=== PATIENT | male | born 1930 | race Hispanic/Latino ===

== ENCOUNTER 2018-04-05 11:56 | Inpatient (IN) | payer MEDICARE, OTHER ==
--- NOTE | 2018-04-05 12:59 | RAD ---
HISTORY: anemia, fatigue COMPARISON: No prior. FINDINGS: LUNGS: No active pulmonary disease. PLEURA: No significant pleural effusion identified, no pneumothorax apparent. CARDIOVASCULAR: Normal. OSSEOUS STRUCTURES: No significant abnormalities. VISUALIZED UPPER ABDOMEN: Normal. OTHER FINDINGS: Metal fragments are seen over the left side of the chest and axilla. IMPRESSION: No active disease.
[2018-04-05 13:15] LABS: BASO # 0.03 K/mm3 (0.0-2.0); BASO % 0.2 % (0.0-3.0); EOS # 0.1 (0.0-0.7); GRAN # 9.99 (1.4-6.5); GRAN % 74.9 % (50.0-68.0); HEMOGLOBIN 7.4 g/dL (14.0-18.0); LYMPH # 1.6 (1.2-3.4); LYMPH % 12.2 % (22.0-35.0); MEAN CELL VOLUME 77.7 fl (80.0-105.0); MEAN CORPUSCULAR HEMOGLOBIN 24.6 pg (25.0-35.0); MEAN CORPUSCULAR HGB CONC 31.6 g/dl (31.0-37.0); MEAN PLATELET VOLUME 9.5 fl (7.0-11.0); MONO # 1.6 (0.1-0.6); MONO % 11.7 % (1.0-6.0); RBC 3.01 10^6/uL (3.5-6.1); WHITE BLOOD COUNT 13.4 10^3/ul (4.5-11.0)
[2018-04-05 13:18] LABS: ALB/GLOB RATIO 1.1 (1.1-1.8); ALBUMIN 3.6 g/dL (3.0-4.8); ALT/SGPT 40 U/L (7-56); AST/SGOT 33 U/L (17-59); BLOOD UREA NITROGEN 40 mg/dL (7-21); CALCIUM 9.1 mg/dL (8.4-10.5); GFR AFRICAN-AMERICAN > 60; GFR NON-AFRICAN AMERICAN 52; LIPASE 61 U/L (23-300)
[2018-04-05 13:19] LABS: INR 1.07 (0.93-1.08); PARTIAL THROMBOPLASTIN TIME 32.2 Seconds (25.1-36.5); PROTHROMBIN TIME 12.3 SECONDS (9.4-12.5)
[2018-04-05 13:29] LABS: TROPONIN I < 0.01 ng/mL
--- NOTE | 2018-04-05 13:30 | ED PDOC ---
Arrival/HPI - General Chief Complaint: Abnormal Labs Time Seen by Provider: 04/05/18 12:07 Historian: Patient, Family - History of Present Illness Narrative History of Present Illness (Text): 04/05/18 13:26 87-year-old male presents today sent in by his primary care physician for anemia. Per patient and his daughter he's been having more than a 20 pound weight loss in the past 2 months. He's complained of decreased appetite. He also noted that he has a growth to his left lateral thigh that has intermittently been squirting blood. Patient states that now has a foul smell. He denies any fevers or chills. He denies abdominal pain. Denies chest pain or shortness of breath. He is complaining of pain in both arms and both legs and states he's been feeling generally fatigued. Time/Duration: > month Symptom Onset: Gradual Symptom Course: Worsening Quality: Aching Severity Level: 3 Past Medical History - Provider Review Nursing Documentation Reviewed: Yes - Travel History Have you recently traveled outside [place] w/in the past 3 mons?: No - Tetanus Immunization Tetanus Immunization: Unknown - Cardiac Hx Cardiac Arrhythmia: Yes Hx Hypertension: Yes - Gastrointestinal Hx Gastroesophageal Reflux: Yes - Psychiatric Hx Anxiety: Yes Hx Substance Use: No - Surgical History Other/Comment: TURB Family/Social History - Physician Review Nursing Documentation Reviewed: Yes Family/Social History: Unknown Family HX Smoking Status: Former Smoker Hx Alcohol Use: Yes Frequency of alcohol use: Socially Hx Substance Use: No Allergies/Home Meds Allergies/Adverse Reactions: Allergies ciprofloxacin [From Cipro] Allergy (Verified 04/05/18 12:07) URTICARIA Home Medications: Home Meds Medication Instructions Recorded Confirmed Digoxin [Digitek] 250 mcg PO DAILY 04/05/18 04/05/18 Ferrous Sulfate [Feosol] 325 mg PO DAILY 04/05/18 04/05/18 Finasteride [Proscar] 5 mg PO DAILY 04/05/18 04/05/18 Lansoprazole [Prevacid 24Hr] 15 mg PO DAILY 04/05/18 04/05/18 Lisinopril [Zestril] 20 mg PO DAILY 04/05/18 04/05/18 amLODIPine [Norvasc] 10 mg PO DAILY 04/05/18 04/05/18 Review of Systems - Review of Systems Constitutional: Fatigue. absent: Fevers Respiratory: absent: SOB, Cough Cardiovascular: absent: Chest Pain, Palpitations Gastrointestinal: Appetite Changes. absent: Abdominal Pain, Constipation, Diarrhea, Nausea, Vomiting Genitourinary Male: absent: Dysuria, Frequency, Hematuria, Urinary Output Changes Musculoskeletal: Arthralgias. absent: Back Pain, Neck Pain Skin: Skin Lesions (left thigh) Neurological: absent: Headache, Dizziness Psychiatric: absent: Anxiety, Depression, Suicidal Ideation Physical Exam Vital Signs Reviewed: Yes Vital Signs Temp Pulse Resp BP Pulse Ox 04/05/18 15:05 98.2 F 75 18 114/60 04/05/18 14:40 98.2 F 74 17 118/61 04/05/18 13:57 75 19 120/59 L 99 04/05/18 12:00 97.9 F 82 18 106/57 L 97 Temperature: Afebrile Blood Pressure: Normal Pulse: Regular Respiratory Rate: Normal Appearance: Positive for: Well-Appearing, Non-Toxic, Comfortable Pain Distress: None Mental Status: Positive for: Alert and Oriented X 3 - Systems Exam Head: Present: Atraumatic Mouth: Present: Moist Mucous Membranes Neck: Present: Normal Range of Motion Respiratory/Chest: Present: Clear to Auscultation, Good Air Exchange. No: Respiratory Distress, Accessory Muscle Use Cardiovascular: Present: Regular Rate and Rhythm, Normal S1, S2. No: Murmurs Abdomen: No: Tenderness, Distention, Peritoneal Signs, Rebound, Guarding Rectal: Present: Normal Rectal Tone. No: Occult Blood (heme negative stools. ) , Rectal Tenderness, Gross Blood, Melena, Hemorrhoids, Fissures Upper Extremity: Present: Normal Inspection, Normal ROM Lower Extremity: Present: Normal ROM, Tenderness, Other (left thigh there is a large 7cm by 6cm erythmatous growth off of the lateral aspect of thigh with foul smelling discharge, no tenderness; oozing blood. sensation and distal pulses intact. ) Neurological: Present: GCS=15, Speech Normal Skin: Present: Warm, Dry, Normal Color. No: Rashes Psychiatric: Present: Alert, Oriented x 3 Medical Decision Making ED Course and Treatment: 04/05/18 13:30 87yr old male sent in by PMD for anemia cbc; hgb; 7.4 wbc; 13.4 cmp; bun; 40/ cr 1.3 trop; wnl ekg; sinus rhythm at67b/m no st elevations, normal axis, normal intervals. cxr; wnl ct abd/pelvis: FINDINGS: LOWER THORAX: Unremarkable. LIVER: Unremarkable. No gross lesion or ductal dilatation. GALLBLADDER AND BILE DUCTS: Unremarkable. PANCREAS: Unremarkable. No gross lesion or ductal dilatation. SPLEEN: Unremarkable. ADRENALS: Unremarkable. No mass. KIDNEYS AND URETERS: There is a well-defined hemorrhagic cyst in the lower pole of the right kidney measuring 16 x 23 by 13 mm in size. This measures 85 Hounsfield units. Vascular calcifications are seen in both kidneys. VASCULATURE: Unremarkable. No aortic aneurysm. BOWEL: There is diverticulosis of the sigmoid colon APPENDIX: Unremarkable. Normal appendix. PERITONEUM: There is a large fat containing right inguinal hernia measuring 3.8 x 4.8 cm in diameter. There is no herniation of bowel loops. LYMPH NODES: Unremarkable. No enlarged lymph nodes. BLADDER: Unremarkable. REPRODUCTIVE: Unremarkable. BONES: No acute fracture. OTHER FINDINGS: None. IMPRESSION: There is a large fat containing right inguinal hernia measuring 3.8 x 4.8 cm in diameter. There is no herniation of bowel loops. No acute intra-abdominal findings consent obtained for blood transfusion; case discussed with dr. last; medical surgical tech; will consult Dr. Rodriguez Case discussed with Dr. eisenberg covering for Dr. Harden accepts admission all aspects of this case were discussed the attending of record. impression; anemia, skin mass admit med/surg - Lab Interpretations Lab Results: 04/05/18 13:04 04/05/18 13:04 Lab Results 04/05/18 14:36: Digoxin 0.9 04/05/18 13:46: Blood Type Confirm A POSITIVE 04/05/18 13:04: Blood Type A POSITIVE, Antibody Screen Negative, Crossmatch See Detail, BBK History Checked No verified bt 04/05/18 13:04: PT 12.3, INR 1.07, APTT 32.2 04/05/18 13:04: WBC 13.4 H, RBC 3.01 L, Hgb 7.4 L, Hct 23.4 L, MCV 77.7 L, MCH 24.6 L, MCHC 31.6, RDW 15.0 H, Plt Count 582 H, MPV 9.5, Gran % 74.9 H, Lymph % (Auto) 12.2 L, [place] % (Auto) 11.7 H, Eos % (Auto) 1.0 L, Baso % (Auto) 0.2, Gran # 9.99 H, Lymph # (Auto) 1.6, [place] # (Auto) 1.6 H, Eos # (Auto) 0.1, Baso # (Auto) 0.03 04/05/18 13:04: Sodium 143, Potassium 4.8, Chloride 104, Carbon Dioxide 26, Anion Gap 18, BUN 40 H, Creatinine 1.3, Est GFR ( Amer) > 60, Est GFR ( Non-Af Amer) 52, Random Glucose 112 H, Calcium 9.1, Total Bilirubin 0.1 L, AST 33, ALT 40, Alkaline Phosphatase 87, Lactate Dehydrogenase 335, Total Creatine Kinase 26 L, Troponin I < 0.01, Total Protein 6.9, Albumin 3.6, Globulin 3.4, Albumin/Globulin Ratio 1.1, Lipase 61 - RAD Interpretation Radiology Orders: 04/05/18 12:24 CHEST PORTABLE [RAD] Stat 04/05/18 12:48 ABD & PELVIS W/O PO OR IV CONT [CT] Stat - Medication Orders Current Medication Orders: Discontinued Medications Piperacillin Sod/Tazobactam Sod (Zosyn 3.375 In Ns 100ml) 100 mls @ 200 mls/hr IVPB STAT STA PRN Reason: Protocol Stop: 04/05/18 15:15 Last Admin: 04/05/18 15:07 Dose: 200 mls/hr eMAR Start Stop Document 04/05/18 15:07 RD (Rec: 04/05/18 15:08 RD [id number]) Intravenous Solution Start Date 04/05/18 Start Time 15:08 End Date 04/05/18 End time 15:38 Total Infusion Time 30 Disposition/Present on Arrival - Present on Arrival Any Indicators Present on Arrival: No History of DVT/PE: No History of Uncontrolled Diabetes: No Urinary Catheter: No History of Decub. Ulcer: No History Surgical Site Infection Following: None - Disposition Have Diagnosis and Disposition been Completed?: Yes Diagnosis: Anemia, Skin mass Disposition: HOSPITALIZED Disposition Time: 14:00 Patient Plan: Admission Condition: FAIR Forms: [employer] ([place]ish)
--- NOTE | 2018-04-05 13:52 | CT ---
PROCEDURE: CT Abdomen and Pelvis without intravenous contrast HISTORY: weight loss, anemia, hx of hernia COMPARISON: None. TECHNIQUE: Without contrast. Contrast dose: Radiation dose: Total exam DLP = 243 mGy-cm. This CT exam was performed using one or more of the following dose reduction techniques: Automated exposure control, adjustment of the mA and/or kV according to patient size, and/or use of iterative reconstruction technique. FINDINGS: LOWER THORAX: Unremarkable. LIVER: Unremarkable. No gross lesion or ductal dilatation. GALLBLADDER AND BILE DUCTS: Unremarkable. PANCREAS: Unremarkable. No gross lesion or ductal dilatation. SPLEEN: Unremarkable. ADRENALS: Unremarkable. No mass. KIDNEYS AND URETERS: There is a well-defined hemorrhagic cyst in the lower pole of the right kidney measuring 16 x 23 by 13 mm in size. This measures 85 Hounsfield units. Vascular calcifications are seen in both kidneys. VASCULATURE: Unremarkable. No aortic aneurysm. BOWEL: There is diverticulosis of the sigmoid colon APPENDIX: Unremarkable. Normal appendix. PERITONEUM: There is a large fat containing right inguinal hernia measuring 3.8 x 4.8 cm in diameter. There is no herniation of bowel loops. LYMPH NODES: Unremarkable. No enlarged lymph nodes. BLADDER: Unremarkable. REPRODUCTIVE: Unremarkable. BONES: No acute fracture. OTHER FINDINGS: None. IMPRESSION: There is a large fat containing right inguinal hernia measuring 3.8 x 4.8 cm in diameter. There is no herniation of bowel loops. No acute intra-abdominal findings
[2018-04-05] MEDS ORDERED: Piperacillin/Tazobact 3.375 gm 100 ML IVPB STA (14:46)
--- NOTE | 2018-04-05 15:43 | CP.PCM.CON ---
History of Present Illness - History of Present Illness History of Present Illness: General Surgery consult note for Dr. Rodriguez Consulted for: left thigh mass, right inguinal hernia Patient is an 87M with PMH of melanoma and basal cell carcinoma, GERD, HTN, and remote history of a cardiac arrhythmia and PSH of TURP who presented to the ER for anemia and a left thigh mass. incidental finding in the ER was a right inguinal hernia. Patient states that he has had a mass on his left thigh for at least 2 years, that it started as a flat, brown skin lesion but then has been steadily growing ever since. It has become foul smelling and "shoots blood" when he is not careful with the dressing changes. Lesion was discovered by his primary physician, Dr. Coffman, who referred him to Dr. Rodriguez's office and attained routine blood work. Patient was found to be anemic and Dr. Coffman referred him to the ER. Patient's daughter states that patient has had a 20 pound irene loss over the past 2 months because he does not want to eat. Patient also complains of chronic constipation and hemorrhoids for which he takes senokot multiple times a day. He reports intermittent dark stools. Patient also reports he has had the right inguinal hernia for 25 years, that it is easily reducible, and that it does not cause any pain or problems when he wheres a hernia support belt. Patient denies any fevers, chills, nausea, vomiting, diarrhea, abdominal pain, chest pain, SOB, or any other symptoms. Patient has had multiple skin lesions removed from abdominal skin and legs which have been shown to be melanoma, patient has also had basal cell cancer removed from his nose in the past. Patient reports he has had a colonoscopy once and it showed a large polyp that was difficult to remove. Pt never followed up for a repeat scope. PMH: arrhythmia, HTN, GERD, anxiety, BPH, melanoma, basal cell carcinoma PSH: TURP, removal of melanoma and basal cell cancer ALL: ciprofloxacin FMHx: multiple siblings with brain and lung cancer, no abdominal cancer history Social: Review of Systems - Review of Systems All systems: reviewed and no additional remarkable complaints except (as per HPI ) Past Patient History - Tetanus Immunizations Tetanus Immunization: Unknown - Past Medical History & Family History Past Medical History?: Yes Pertinent Family History: multiple siblings with lung and brain cancer - Past Social History Smoking Status: Former Smoker - CARDIAC Hx Cardia Arrhythmia: Yes Hx Hypertension: Yes - GASTROINTESTINAL Hx Gastroesophageal Reflux: Yes - PSYCHIATRIC Hx Anxiety: Yes Hx Substance Use: No - SURGICAL HISTORY Other/Comment: TURB Meds Allergies/Adverse Reactions: Allergies Allergy/AdvReac Type Severity Reaction Status Date / Time ciprofloxacin [From Cipro] Allergy URTICARIA Verified 04/05/18 12:07 Physical Exam - Constitutional Appears: Well, Non-toxic, No Acute Distress - Head Exam Head Exam: ATRAUMATIC, NORMOCEPHALIC - Eye Exam Eye Exam: Normal appearance. absent: Conjunctival injection, Scleral icterus - ENT Exam ENT Exam: Mucous Membranes Moist, Normal Oropharynx - Respiratory Exam Respiratory Exam: NORMAL BREATHING PATTERN. absent: Accessory Muscle Use, Respiratory Distress - Cardiovascular Exam Cardiovascular Exam: RRR - GI/Abdominal Exam GI & Abdominal Exam: Soft. absent: Distended, Tenderness Additional comments: small, erythematous, discrete, mobile subcutaneous mass just superior to the left pubic ramus - Rectal Exam Rectal Exam: Hemorrhoids (external, non-thrombosed). absent: Black Stool, Bloody Stool, Fecal Impaction Additional comments: sphincter tone intact, no masses - Exam Exam: Circumcision. absent: Scrotal Swelling, Testicular Tenderness Additional comments: large left inguinal hernia, reducible, non-tender, non-erythematous - Extremities Exam Extremities exam: Positive for: pedal pulses present. Negative for: calf tenderness, pedal edema - Back Exam Back exam: absent: CVA tenderness (L), CVA tenderness (R) - Neurological Exam Neurological exam: Alert, Oriented x3 - Psychiatric Exam Psychiatric exam: Normal Affect, Normal Mood - Skin Skin Exam: Dry, Normal Color, Warm Additional comments: left thigh with mushroom shaped elevated mass approximately 10cc's in diameter, 2cm elevation with base approximately 7cm in diameter, beefy red in appearance, friable, with foul smelling odor, no active bleeding. Results - Vital Signs Recent Vital Signs: Last Vital Signs Temp 98.2 F 04/05/18 15:05 Pulse 75 04/05/18 15:05 Resp 18 04/05/18 15:05 BP 114/60 04/05/18 15:05 Pulse Ox 99 04/05/18 13:57 - Labs Result Diagrams: 04/05/18 13:04 04/05/18 13:04 Assessment & Plan - Assessment and Plan (Free Text) Assessment: 87M with large soft tissue mass of unknown origin in the left thigh, right reducible chronic inguinal hernia, anemia Plan: May consider biopsy vs. excision of the left thigh mass and possibly left pubic lesion No surgical intervention for the inguinal hernia at this time--it is asymptomatic, reducible, no sign of strangulation and chronic Administer blood as needed for anemia or hemodynamic instability recommend GI consult for colonoscopy to evaluate for GI bleed as cause of anemia trend CBC Urine and bowel movement monitoring Discussed with Dr. Michael Hernández, PGY2
[2018-04-05 16:34] LABS: PH,URINE 7.5 (4.7-8.0); URINE APPEARANCE CLEAR (CLEAR); URINE BILIRUBIN NEGATIVE (NEGATIVE); URINE BLOOD NEGATIVE (NEGATIVE); URINE COLOR LIGHT YELLOW (YELLOW); URINE GLUCOSE (UA) NEGATIVE (NEGATIVE); URINE LEUKOCYTE ESTERASE NEGATIVE Leu/uL (NEGATIVE); URINE PROTEIN TRACE mg/dL (<30 mg/dL); URINE UROBILINOGEN 0.2 E.U./dL (<1 E.U./dL)
[2018-04-05 16:38] LABS: URINE RBC NEGATIVE /hpf (0-2); URINE WBC NEGATIVE /hpf (0-6)
[2018-04-05 16:39] VITALS: BMI 17.9
[2018-04-05] MEDS: Digoxin 250 mcg (0.25 mg) Tab PO SCH (18:30)
[2018-04-06] MEDS ORDERED: Sodium Chloride 0.9% 1,000 ML IV SCH (00:01)
--- NOTE | 2018-04-06 01:11 | HP ---
DATE OF EXAM: 04/05/2018 HISTORY OF PRESENT ILLNESS: The patient is 87-year-old, patient of Dr. Coffman. He went to see Dr. Coffman yesterday because of generalized aches and pains, feeling fatigued, tired, no strength. He was seen by Dr. Coffman yesterday who did blood work and called daughter that he should head to Emergency Room because he is anemic. According to his daughter, he has lost 20 pounds in last 2 months. Also, complained of not feeling well, decreased appetite. Denies any black stools. No history of vomiting but does have nausea. The patient also mentions that he has a growth on his left thigh that is there for almost 2 years, but recently it has started smelling bad and it oozes some blood. PAST MEDICAL HISTORY: Significant for: 1. Hypertension. 2. Cardiac arrhythmia. 3. History of prostatic hypertrophy. 4. Gastritis. 5. Anxiety disorder. ALLERGIES: ALLERGIC TO CIPRO. MEDICATION AT HOME: He is on amlodipine 10 mg daily, Prevacid 40 mg daily, finasteride 5 mg daily, ferrous sulfate, digoxin daily, and Zestril 20 mg daily. SOCIAL HISTORY: He used to be a heavy smoker for many, many years, quit 10 years ago. Socially drinks. Does not do drugs. REVIEW OF SYSTEMS: Significant for generalized aches and pain and left thigh discharging wound. PHYSICAL EXAMINATION: GENERAL: He is awake, alert, oriented, and communicative. VITAL SIGNS: He is afebrile, pulse 77, respirations 18, blood pressure 109/57. LUNGS: Bilateral fair air flow. No rhonchi or crackle. HEART: S1 and S2 audible. ABDOMEN: Soft and nontender. No rebound. No guarding. NEUROLOGIC: The patient is awake, alert, oriented, communicative, able to move all extremities. LABORATORY DATA: WBC 13.4, hemoglobin 7.4, hematocrit 23.4, platelets 582. PT 12.3, INR 1.07. Chemistry: Sodium 143, potassium 4.8, chloride 104, CO2 of 26, BUN 40, creatinine 1.3, blood sugar of 112. LFTs are within normal limits. Digoxin level is 0.9. ASSESSMENT: 1. Generalized fatigue, aches and pains, secondary to anemia. 2. Left thigh growth, looks malignant. 3. History of hypertension, currently hypotensive. 4. Benign prostatic hypertrophy. PLAN: The patient will receive 2 blood transfusions. Surgical consult by Dr. Coffman will be requested. We will start him on lisinopril 5 mg for now and might increase if needed. I will start him on IV antibiotics since the growth is foul-smelling and we will follow up his CBC, electrolyte in a.m. Destiny Bellamy MD
[2018-04-06 06:51] LABS: BASO # 0.04 K/mm3 (0.0-2.0); BASO % 0.4 % (0.0-3.0); EOS # 0.2 (0.0-0.7); EOS % 2.1 % (1.5-5.0); GRAN # 8.15 (1.4-6.5); GRAN % 72.5 % (50.0-68.0); LYMPH # 1.6 (1.2-3.4); LYMPH % 14.1 % (22.0-35.0); MEAN CELL VOLUME 79.4 fl (80.0-105.0); MEAN CORPUSCULAR HEMOGLOBIN 25.5 pg (25.0-35.0); MEAN CORPUSCULAR HGB CONC 32.2 g/dl (31.0-37.0); MEAN PLATELET VOLUME 9.7 fl (7.0-11.0); MONO # 1.2 (0.1-0.6); MONO % 10.9 % (1.0-6.0); PLATELET COUNT 494 10^3/uL (120.0-450.0); RBC 3.64 10^6/uL (3.5-6.1); RED CELL DISTRIBUTION WIDTH 15.4 % (11.5-14.5); WHITE BLOOD COUNT 11.3 10^3/ul (4.5-11.0)
[2018-04-06 06:59] LABS: ALBUMIN 3.3 g/dL (3.0-4.8); ALT/SGPT 35 U/L (7-56); AST/SGOT 37 U/L (17-59); BLOOD UREA NITROGEN 24 mg/dL (7-21); CALCIUM 8.8 mg/dL (8.4-10.5); GFR AFRICAN-AMERICAN > 60; GFR NON-AFRICAN AMERICAN > 60
[2018-04-06 07:15] LABS: HEMOGLOBIN 9.3 g/dL (14.0-18.0)
[2018-04-06 07:26] LABS: FREE T4 0.98 ng/dL (0.78-2.19)
[2018-04-06] MEDS ORDERED: Iohexol 350 MG/100 ML VIAL ONE (07:29)
--- NOTE | 2018-04-06 08:10 | CP.PCM.CON ---
History of Present Illness - History of Present Illness History of Present Illness: Hematology-Oncology Consult note for Dr. Harkins Reason for consult: left thigh mass 87yo male PMHx melanoma, basal cell ca, GERD, presents to the ER with anemia and a left thigh mass. Patient saw Dr. Rapp (PMD) on Friday04/03/18 for the left thigh mass and had routine lab work done which showed a low H&H and was told to come in. Patient reports his left thigh mass has been progressively growing over the past 2 years- it started as a flat, brown skin lesion that began to grow and change in appearance. Currently it is a foul smelling with bloody discharge. Patient's daughter at bedside also reports that over the past 6-8 weeks she has noticed her father has had a 20-25pound weight loss and seems more tired and weaker. He has also had a decreased appetite. Patient complains of chronic constipation. On ROS he denied any fever, chills, headache, dizziness , chest pain, palpitations, SOB, cough, abd pain, nausea, vomiting, dysuria, hematura, and swelling in his legs bilaterally. Patient has chronic pain in his legs and anxiety. As per daughter at bedside patient has had multiple skin lesions removed from his nose and legs. He has also had a colonoscopy that showed a large polyp which was difficult to remove. PMHx: HTN, GERD, anxiety, BPH, melanoma, basal cell carcinoma PSurgH: TURP, removal of melanoma and basal cell cancer ALL: ciprofloxacin FMHx: multiple siblings with brain and lung cancer, no abdominal cancer history SocHx: smoked 2-3ppd 65 years and quit 10 years ago. Drinks 1-2beer/wine glass/ day. Used to smoke marijuana Review of Systems - Review of Systems All systems: reviewed and no additional remarkable complaints except Review of Systems: as per HPI Past Patient History - Tetanus Immunizations Tetanus Immunization: Unknown - Past Medical History & Family History Past Medical History?: Yes - Past Social History Smoking Status: Former Smoker - CARDIAC Hx Cardia Arrhythmia: Yes Hx Hypertension: Yes - MUSCULOSKELETAL/RHEUMATOLOGICAL Hx Falls: No - GASTROINTESTINAL Hx Gastroesophageal Reflux: Yes - PSYCHIATRIC Hx Anxiety: Yes Hx Substance Use: No - SURGICAL HISTORY Other/Comment: TURB Meds Allergies/Adverse Reactions: Allergies Allergy/AdvReac Type Severity Reaction Status Date / Time ciprofloxacin [From Cipro] Allergy URTICARIA Verified 04/05/18 12:07 - Medications Medications: Current Medications Acetaminophen (Tylenol 325mg Tab) 650 mg PO Q6H PRN PRN Reason: Fever >100.4 F Last Admin: 04/06/18 00:26 Dose: 650 mg Digoxin (Lanoxin) 0.25 mg PO DAILY [facility] Last Admin: 04/05/18 18:30 Dose: 0.25 mg Finasteride (Proscar) 5 mg PO DAILY [facility] Last Admin: 04/05/18 18:31 Dose: 5 mg Ceftriaxone Sodium (Rocephin 1 Gram Ivpb) 1 gm in 100 mls @ 100 mls/hr IVPB DAILY [facility] PRN Reason: Protocol Sodium Chloride (Sodium Chloride 0.9%) 1,000 mls @ 75 mls/hr IV .[id number] [facility] Last Admin: 04/06/18 00:19 Dose: 75 mls/hr Lisinopril (Zestril) 5 mg PO DAILY [facility] Last Admin: 04/05/18 18:30 Dose: 5 mg Pantoprazole Sodium (Protonix Inj) 40 mg IVP DAILY [facility] Physical Exam - Constitutional Appears: Non-toxic, No Acute Distress - Head Exam Head Exam: ATRAUMATIC, NORMAL INSPECTION, NORMOCEPHALIC - Eye Exam Eye Exam: EOMI, Normal appearance, PERRL. absent: Conjunctival injection, Scleral icterus - ENT Exam ENT Exam: Mucous Membranes Moist - Neck Exam Neck exam: Positive for: Full Rom, Normal Inspection - Respiratory Exam Respiratory Exam: Clear to Auscultation Bilateral. absent: Accessory Muscle Use , Rales, Rhonchi, Wheezes, Respiratory Distress - Cardiovascular Exam Cardiovascular Exam: +S1, +S2 - GI/Abdominal Exam GI & Abdominal Exam: Normal Bowel Sounds, Soft - Rectal Exam Rectal Exam: Deferred - Extremities Exam Extremities exam: Negative for: pedal edema Additional comments: mass noted left lateral thigh mushroom shaped and elevated approx 2cm 10cm x 7 cm in size beefy red, friable, foul smelling odor, purulent and blood noted - Neurological Exam Neurological exam: Alert, CN II-XII Intact, Oriented x3 - Psychiatric Exam Psychiatric exam: Normal Affect, Normal Mood - Skin Skin Exam: Dry Additional comments: left lateral thigh mass Results - Vital Signs Recent Vital Signs: Last Vital Signs Temp 97.6 F 04/05/18 20:13 Pulse 73 04/05/18 20:13 Resp 20 04/05/18 20:13 BP 125/67 04/05/18 20:13 Pulse Ox 99 04/05/18 16:29 - Labs Result Diagrams: 04/06/18 05:30 04/06/18 05:30 Labs: Laboratory Results - last 24 hr 04/05/18 04/06/18 04/06/18 16:20 05:30 05:30 WBC 11.3 H RBC 3.64 Hgb 9.3 L Hct 28.9 L MCV 79.4 L MCH 25.5 MCHC 32.2 RDW 15.4 H Plt Count 494 H MPV 9.7 Gran % 72.5 H Lymph % (Auto) 14.1 L [place] % (Auto) 10.9 H Eos % (Auto) 2.1 Baso % (Auto) 0.4 Gran # 8.15 H Lymph # (Auto) 1.6 [place] # (Auto) 1.2 H Eos # (Auto) 0.2 Baso # (Auto) 0.04 Retic Count 1.11 Sodium 142 Potassium 4.5 Chloride 106 Carbon Dioxide 26 Anion Gap 14 BUN 24 H Creatinine 0.7 L Est GFR ( Amer) > 60 Est GFR (Non-Af Amer) > 60 Random Glucose 100 Calcium 8.8 Iron TIBC % Saturation Total Bilirubin 0.7 AST 37 ALT 35 Alkaline Phosphatase 82 Total Protein 6.5 Albumin 3.3 Globulin 3.2 Albumin/Globulin Ratio 1.0 L Free T4 TSH 3rd Generation Urine Color Light yellow Urine Appearance Clear Urine pH 7.5 Ur Specific [place] 1.010 Urine Protein Trace H Urine Glucose (UA) Negative Urine Ketones Negative Urine Blood Negative Urine Nitrate Negative Urine Bilirubin Negative Urine Urobilinogen 0.2 Ur Leukocyte Esterase Negative Urine RBC Negative Urine WBC Negative Ur Epithelial Cells None 04/06/18 04/06/18 05:30 05:30 WBC RBC Hgb Hct MCV MCH MCHC RDW Plt Count MPV Gran % Lymph % (Auto) [place] % (Auto) Eos % (Auto) Baso % (Auto) Gran # Lymph # (Auto) [place] # (Auto) Eos # (Auto) Baso # (Auto) Retic Count Sodium Potassium Chloride Carbon Dioxide Anion Gap BUN Creatinine Est GFR ( Amer) Est GFR (Non-Af Amer) Random Glucose Calcium Iron 46 TIBC 246 L % Saturation 19 L Total Bilirubin AST ALT Alkaline Phosphatase Total Protein Albumin Globulin Albumin/Globulin Ratio Free T4 0.98 TSH 3rd Generation 1.75 Urine Color Urine Appearance Urine pH Ur Specific [place] Urine Protein Urine Glucose (UA) Urine Ketones Urine Blood Urine Nitrate Urine Bilirubin Urine Urobilinogen Ur Leukocyte Esterase Urine RBC Urine WBC Ur Epithelial Cells Assessment & Plan - Assessment and Plan (Free Text) Assessment: 87yo male PMHx melanoma, basal cell ca, GERD, presents to the ER with anemia and a left thigh mass. CT LE showed 6.2cm exophytic lobulated mass along the lateral thigh skin margin. Surgery on board- appreciate reccs. Patient likely for OR tomorrow 04/07 for superficial excision of skin mass. Continue management as per primary Discussed with Dr. Shahana Olsen PGY2
[2018-04-06] MEDS: Oxycodone/Acetaminophen 5/325 mg Tab PO PRN ×3 (09:40→21:51)
[2018-04-06] MEDS: Digoxin 250 mcg (0.25 mg) Tab PO SCH (09:44)
[2018-04-06] MEDS: cefTRIAXone 1 gm 1 GM/100 ML BAG IVPB SCH (09:45)
--- NOTE | 2018-04-06 09:53 | CARD ---
APPROVED REPORT EKG Measurement Heart [id number] <Conclusion> Sinus rhythm with premature supraventricular complexes Borderline 1st degree AVB LAD
--- NOTE | 2018-04-06 10:02 | CT ---
PROCEDURE: HISTORY: evaluate left thigh mass COMPARISON: 04/05/2018 CT abdomen TECHNIQUE: FINDINGS: There is no evidence of fracture or intramedullary mass of the femur. The thigh musculature appears intact. The subcutaneous fat is clear. There is a 6.2 centimeter exophytic lobulated mass along the lateral skin margin. This is nonspecific. There is no deep component. IMPRESSION: 6.2 centimeter exophytic lobulated mass along the lateral thigh skin margin.
--- NOTE | 2018-04-06 11:39 | PN ---
DATE: 04/06/2018 SUBJECTIVE: The patient has no complaints of any chest pain. No shortness of breath. He does say he has pain in his left shoulder and difficult time in having good range of motion. He also has pain in the left knee. PHYSICAL EXAMINATION VITAL SIGNS: Temperature is 97.6, pulse is 73, blood pressure 125/67, respirations 20. GENERAL: The patient is lying in bed, flat, comfortable. HEENT: No oral lesion. Anicteric sclerae. Moist mucosa. NECK: No JVD, adenopathy, or thyromegaly. CARDIOVASCULAR: S1 and S2, regular. No murmurs, rubs, or gallops. LUNGS: Clear to auscultation bilaterally. No wheeze, rales, or rhonchi. ABDOMEN: Bowel sounds are positive, soft, nontender and nondistended. EXTREMITIES: No cyanosis, clubbing or edema. LABORATORY DATA: White count 11.3, hemoglobin 9.3, creatinine 0.7. CT of the abdomen and pelvis shows a large fat-containing right inguinal hernia measuring 3.8 x 4.8 cm. No acute intraabdominal abnormalities seen. ASSESSMENT: 1. Left leg mass. 2. Hypertension. 3. History of melanoma and basal cell carcinoma. 4. Gastroesophageal reflux disease. 5. Degenerative joint disease/osteoarthritis. 6. Former smoker. 7. Benign prostatic hyperplasia. 8. Hemorrhagic cyst of right kidney, 16 x 23 x 30 mm. 9. Anemia, unknown etiology. PLAN: The patient is scheduled for biopsy today of the right inguinal hernia, 3.8 x 4.8 cm. He has decreased range of motion in the left joint. He also has pain in the left knee. He had a hemoglobin of 7.4, that was at 9.3 this morning. The patient has a TSH that is normal. Mild iron deficiency with saturation of 19%. He did receive transfusion of 2 units. We will get input from Oncology, with Dr. Harkins. The patient had digoxin, this we will continue. He is receiving Proscar for his BPH. The patient is on IV fluids. I will discontinue the patient's IV fluids at this point. The patient is on lisinopril. He had a CT that is done of the left leg. The patient is currently n.p.o. We will also get Dr. Harkins to evaluate the patient for the left shoulder and left knee pain. Trung Harden MD
[2018-04-06 13:21] LABS: FOLATE 8.5 ng/mL
--- NOTE | 2018-04-07 02:46 | CON ---
DATE: ORTHOPEDIC CONSULTATION: HISTORY OF PRESENT ILLNESS: An 87-year-old male, in room 374, bed 1. The patient was asked to be seen for pain in his left shoulder and both knees, appears to be that the left knee is very painful to touch. No significant effusion. He does have what appears to be clinically a high-riding humerus, could very well be a rotator cuff tear, so we are going to send him for an x-ray and since his pain was getting worse and keeping him up at night, I injected his left shoulder for pain with Depo-Medrol and Marcaine. He also complains of bilateral knee pain, so we will x-ray both knees to see if there is any arthrosis, and he is going to go for the surgery tomorrow and to do x-ray of his knees done too, and then I will order some therapy for ambulation, and evaluate him again after he has his general surgical procedure done. FINAL DIAGNOSES: Suspect left shoulder pain from rotator cuff tear and bilateral knee arthrosis, left worse than the right. Juan Alberto Hidalgo DO TITA
[2018-04-07 06:30] LABS: HEMOGLOBIN 9.6 g/dL (14.0-18.0); MEAN CELL VOLUME 80.1 fl (80.0-105.0); MEAN CORPUSCULAR HEMOGLOBIN 25.5 pg (25.0-35.0); MEAN CORPUSCULAR HGB CONC 31.8 g/dl (31.0-37.0); MEAN PLATELET VOLUME 9.5 fl (7.0-11.0); RBC 3.77 10^6/uL (3.5-6.1); RED CELL DISTRIBUTION WIDTH 16.2 % (11.5-14.5); WHITE BLOOD COUNT 12.2 10^3/ul (4.5-11.0)
[2018-04-07 07:26] LABS: ALBUMIN 3.3 g/dL (3.0-4.8); ALT/SGPT 33 U/L (7-56); AST/SGOT 34 U/L (17-59); BLOOD UREA NITROGEN 20 mg/dL (7-21); GFR AFRICAN-AMERICAN > 60; GFR NON-AFRICAN AMERICAN > 60
[2018-04-07] MEDS ORDERED: Bupivacaine 0.5% Inj(30mL) ONE ×2 (09:17→10:33)
[2018-04-07] MEDS ORDERED: Lidocaine 1% Inj (20ml) ONE (09:17)
[2018-04-07] MEDS ORDERED: Propofol 10 mg/ml Inj (20 ML) ONE (09:27)
[2018-04-07] MEDS: cefTRIAXone 1 gm 1 GM/100 ML BAG IVPB SCH (09:40)
[2018-04-07] MEDS ORDERED: ePHEDrine 50 mg/ml Inj ONE (09:40)
--- NOTE | 2018-04-07 09:43 | PN ---
DATE: 04/07/2018 SUBJECTIVE: The patient has no complaints of any chest pain. No shortness of breath. No headaches. He complains of having difficulty with having full range of motion of the left shoulder. PHYSICAL EXAMINATION: VITAL SIGNS: Temperature is 98.7, pulse is 73, blood pressure is 116/72, respirations 19. GENERAL: The patient is lying in bed, flat, comfortable. HEENT: No oral lesion. Anicteric sclerae. Moist mucosa. NECK: No JVD, adenopathy, or thyromegaly. CARDIOVASCULAR: S1 and S2, regular. No murmurs, rubs, or gallops. LUNGS: Clear to auscultation bilaterally. No wheeze, rales, or rhonchi. ABDOMEN: Bowel sounds are positive, soft, nontender and nondistended. EXTREMITIES: No cyanosis, clubbing or edema. LABORATORY DATA: White count of 12.2, hemoglobin 9.6, creatinine is 0.7. ASSESSMENT: 1. Left leg mass. 2. Hypertension. 3. History of melanoma and basal cell carcinoma. 4. Gastroesophageal reflux disease. 5. Degenerative joint disease/osteoarthritis. 6. Former smoker. 7. Benign prostatic hypertrophy. 8. Hemorrhagic cyst of right kidney 16 x 23 x 30 mm. 9. Anemia, chronic. PLAN: The patient is currently comfortable. He had an x-ray. There is some in the left shoulder. He was seen by Dr. Hidalgo. I did speak to him. I appreciate his input. He states that the patient does not have any fractures. The patient is waiting for his biopsy to be done today. The patient is on Proscar, he is going to continue. He is on Protonix daily. The patient is on tramadol for pain. He is on lisinopril. He is also on Percocet for severe pain. He is n.p.o. He is getting physical therapy. May need further rehabilitation. He is waiting to be seen by Physical Therapy. Trung Harden MD
[2018-04-07] MEDS ORDERED: HYDROmorphone 0.5 mg/0.5 ml ISec IVP PRN (11:05)
--- NOTE | 2018-04-07 11:06 | PCM.SURG1 ---
Surgeon's Initial Post Op Note - Surgeon's Notes Surgeon: Dr. Rodriguez Outboard Motor Assembler: Nadege Hernández Type of Anesthesia: General Endo Pre-Operative Diagnosis: left thigh skin mass, left groin sebaceous cyst Operative Findings: [id number] large superficial thigh skin mass, not invading the fascia. Left groin sebaceous cyst Post-Operative Diagnosis: same Operation Performed: left 10x12 thigh mass excision with advancement skin closure of [id number], left groin sebaceous cyst excision Specimen/Specimens Removed: left thigh skin mass [id number], cebaceous cyst of left groin Estimated Blood Loss: EBL {In ML}: 15 Drains Used: No Drains Post-Op Condition: Fair Date of Surgery/Procedure: 04/07/18 Time of Surgery/Procedure: 09:30
--- NOTE | 2018-04-07 12:01 | RAD ---
PROCEDURE: Radiographs of the Left Shoulder HISTORY: lt sh pain COMPARISON: No prior. FINDINGS: BONES: Normal. No fracture. JOINTS: Normal. Glenohumeral and acromioclavicular joints preserved. No osteoarthritis. SOFT TISSUES: Metal fragments are seen in the left axilla. OTHER FINDINGS: There is a small linear collection of air just beneath the acromioclavicular joint. This could be due to recent shoulder injection or aspiration. Clinical correlation IMPRESSION: No acute findings
--- NOTE | 2018-04-07 12:02 | RAD ---
PROCEDURE: Bilateral Knee Radiographs. HISTORY: knee pain COMPARISON: None. FINDINGS: BONES: Right Knee: Normal. No fracture. Left Knee: Normal. No fracture. JOINTS: Right Knee: Normal. No osteoarthritis. Left knee: Normal. No osteoarthritis. SOFT TISSUES: Right Knee: Normal. Left Knee: Normal. JOINT EFFUSION: Right Knee: None. Left Knee: None. OTHER FINDINGS: None. IMPRESSION: Normal radiographs of the knees.
--- NOTE | 2018-04-07 12:49 | PN ---
DATE: 04/07/2018 UPDATE REPORT LOCATION: In [facility], bed 1. SUBJECTIVE: I had ordered x-ray of his left shoulder for suspected bursitis, rotator cuff problem. His x-ray shows also a nondisplaced fracture at distal left clavicle that we will treat conservatively with a sling for 6 weeks and no range of motion of the left shoulder other than pendulum exercises. I will keep him in a sling for comfort and so no one should hold that arm to resist him with ambulation. He will have to walk with a skilled therapist and a cane in the right hand. We will follow him closely, but the fracture should heal uneventfully of the left distal clavicle. Juan Alberto Hidalgo DO
--- NOTE | 2018-04-07 12:52 | PN ---
DATE: 04/07/2018 This is a followup report of an x-ray that I misinterpreted as a fracture of the left clavicle. When I looked at it closer, looked like there is some artifact, that make it look like an oblique fracture of the left distal clavicle. Clinically, he has no significant pain. The injection did help his subacromial bursitis, but I am not going to use a sling and he will be able to ambulate with a walker once the surgery is completed today for his leg mass, but I am reiterates there is no fracture of the left clavicle clinically or by x-ray. Juan Alberto Hidalgo DO
[2018-04-07] MEDS ORDERED: Cefepime IV 2 gm in NS 2 GM/100 ML BAG IVPB SCH (14:00)
[2018-04-07] MEDS ORDERED: Cefepime 1gm in NS 100ml 1 GM/100 ML BAG IVPB SCH (14:00)
[2018-04-07] MEDS ORDERED: POLYETHYLENE GLYCOL 3350 17 GM/Dose PACKET PO ONE (15:07)
--- NOTE | 2018-04-07 17:37 | CP.PCM.PCO ---
Physician Communication Note - Physician Communication Note Physician Communication Note: pt. in OR for biopsy - started abx, will see
[2018-04-07] MEDS: Cefepime IV 2 gm in NS 2 GM/100 ML BAG IVPB SCH (22:19)
[2018-04-08] MEDS: Cefepime IV 2 gm in NS 2 GM/100 ML BAG IVPB SCH (06:13)
[2018-04-08 06:35] LABS: BASO # 0.02 K/mm3 (0.0-2.0); BASO % 0.2 % (0.0-3.0); EOS # 0.2 (0.0-0.7); EOS % 1.8 % (1.5-5.0); GRAN # 8.77 (1.4-6.5); GRAN % 72.9 % (50.0-68.0); HEMOGLOBIN 8.8 g/dL (14.0-18.0); LYMPH # 1.8 (1.2-3.4); LYMPH % 14.6 % (22.0-35.0); MEAN CELL VOLUME 79.9 fl (80.0-105.0); MEAN CORPUSCULAR HEMOGLOBIN 25.3 pg (25.0-35.0); MEAN CORPUSCULAR HGB CONC 31.7 g/dl (31.0-37.0); MEAN PLATELET VOLUME 9.1 fl (7.0-11.0); MONO # 1.3 (0.1-0.6); MONO % 10.5 % (1.0-6.0); RBC 3.48 10^6/uL (3.5-6.1); RED CELL DISTRIBUTION WIDTH 16.7 % (11.5-14.5)
--- NOTE | 2018-04-08 08:28 | CP.PCM.PN ---
Subjective - Date & Time of Evaluation Date of Evaluation: 04/08/18 Time of Evaluation: 08:30 - Subjective Subjective: Heme-Onc Progress note for Dr. Harkins Patient seen and examined sitting up in bed. Patient is POD#1 left thigh skin mass excision and left groin sebaceous cyst excision. Patient denies any pain/ drainage in the area and tolerated procedure well. He complained of b/l knee pain and feeling like his legs were moving at night. Denied other acute complaints of headache, dizziness, fever, chills, chest pain, palpitations, SOB , cough, abd pain, nausea, vomiting, bowel/bladder complaints, swelling in his legs bilaterally. Patient has been encouraged to work with physical therapy and to be OOB to chair. He is tolerating his diet well. Objective - Vital Signs/Intake and Output Vital Signs (last 24 hours): Temp Pulse Resp BP Pulse Ox 98.8 F 78 19 145/90 93 L 04/08/18 06:00 04/08/18 06:00 04/08/18 06:00 04/08/18 06:00 04/08/18 06:00 Intake and Output: 04/08/18 04/08/18 06:59 18:59 Intake Total 540 Balance 540 - Medications Medications: Current Medications Acetaminophen (Tylenol 325mg Tab) 650 mg PO Q6H PRN PRN Reason: Pain, moderate (4-7) Alprazolam (Xanax) 0.5 mg PO Q6 PRN; Protocol PRN Reason: Anxiety Last Admin: 04/07/18 22:20 Dose: 0.5 mg Digoxin (Lanoxin) 0.25 mg PO DAILY [facility] Last Admin: 04/06/18 09:44 Dose: 0.25 mg Finasteride (Proscar) 5 mg PO DAILY [facility] Last Admin: 04/06/18 09:45 Dose: 5 mg Cefepime HCl (Maxipime 2gm) 2 gm in 100 mls @ 100 mls/hr IVPB Q8 [facility] PRN Reason: Protocol Stop: 04/12/18 22:01 Last Admin: 04/08/18 06:13 Dose: 100 mls/hr Lisinopril (Zestril) 5 mg PO DAILY [facility] Last Admin: 04/06/18 09:44 Dose: 5 mg Ondansetron HCl (Zofran Inj) 4 mg IVP ONCE PRN PRN Reason: Nausea/Vomiting Tramadol HCl (Ultram) 50 mg PO Q6 [facility] Last Admin: 04/08/18 06:14 Dose: 50 mg - Labs Labs: 04/08/18 06:00 04/07/18 05:30 PT 12.3 SECONDS (9.4-12.5) 04/05/18 13:04 INR 1.07 (0.93-1.08) 04/05/18 13:04 APTT 32.2 Seconds (25.1-36.5) 04/05/18 13:04 - Constitutional Appears: Non-toxic, No Acute Distress - Head Exam Head Exam: ATRAUMATIC, NORMAL INSPECTION, NORMOCEPHALIC - Eye Exam Eye Exam: EOMI, Normal appearance, PERRL. absent: Conjunctival injection, Scleral icterus Pupil Exam: NORMAL ACCOMODATION - ENT Exam ENT Exam: Mucous Membranes Moist - Neck Exam Neck Exam: Full ROM, Normal Inspection - Respiratory Exam Respiratory Exam: Clear to Ausculation Bilateral, NORMAL BREATHING PATTERN. absent: Accessory Muscle Use, Rales, Rhonchi, Wheezes, Respiratory Distress - Cardiovascular Exam Cardiovascular Exam: +S1, +S2. absent: Murmur - GI/Abdominal Exam GI & Abdominal Exam: Soft, Normal Bowel Sounds. absent: Firm, Guarding, Rigid, Tenderness - Extremities Exam Extremities Exam: Normal Capillary Refill. absent: Pedal Edema Additional comments: left lateral thigh incision noted. tanna clean/dry/intact. dressing in place - Neurological Exam Neurological Exam: Alert, Awake, Oriented x3 - Psychiatric Exam Psychiatric exam: Normal Affect, Normal Mood - Skin Skin Exam: Dry, Intact, Normal Color, Warm Assessment and Plan - Assessment and Plan (Free Text) Assessment: 87yo male PMHx melanoma, basal cell ca, GERD, presents to the ER with anemia and a left thigh mass. POD#1 Left 10x12 thigh mass excision with advancement skin closure of [id number], Left groin sebaceous cyst excision. Mass sent for biopsy- will f/u to determine management. Tissue culture of left thigh wound grew Pseudomonas Aeruginosa- patient started on Abx as per ID- Cefepime 2gm ivpb q8. CT LE showed 6.2cm exophytic lobulated mass along the lateral thigh skin margin. Continue management as per primary Discussed with Dr. Shahana Olsen PGY2
[2018-04-08] MEDS: Digoxin 250 mcg (0.25 mg) Tab PO SCH (09:51)
--- NOTE | 2018-04-08 12:19 | CP.PCM.PN ---
Subjective - Date & Time of Evaluation Date of Evaluation: 04/08/18 Time of Evaluation: 12:13 - Subjective Subjective: Surgery: Dr. Rodriguez Pt seen and examined. No acute overnight events. States he feels ok this morning but still has pain in his knee secondary to his arthritis. Tolerating diet & denies N/V, F/C. Objective - Vital Signs/Intake and Output Vital Signs (last 24 hours): Temp Pulse Resp BP Pulse Ox 98.8 F 89 19 145/90 93 L 04/08/18 06:00 04/08/18 10:00 04/08/18 06:00 04/08/18 06:00 04/08/18 06:00 Intake and Output: 04/08/18 04/08/18 06:59 18:59 Intake Total 540 Balance 540 - Medications Medications: Current Medications Acetaminophen (Tylenol 325mg Tab) 650 mg PO Q6H PRN PRN Reason: Pain, moderate (4-7) Alprazolam (Xanax) 0.5 mg PO Q6 PRN; Protocol PRN Reason: Anxiety Last Admin: 04/07/18 22:20 Dose: 0.5 mg Digoxin (Lanoxin) 0.25 mg PO DAILY [facility] Last Admin: 04/08/18 09:51 Dose: 0.25 mg Finasteride (Proscar) 5 mg PO DAILY [facility] Last Admin: 04/08/18 09:52 Dose: 5 mg Cefepime HCl (Maxipime 2gm) 2 gm in 100 mls @ 100 mls/hr IVPB Q8 [facility] PRN Reason: Protocol Stop: 04/12/18 22:01 Last Admin: 04/08/18 06:13 Dose: 100 mls/hr Lisinopril (Zestril) 5 mg PO DAILY [facility] Last Admin: 04/08/18 09:52 Dose: 5 mg Ondansetron HCl (Zofran Inj) 4 mg IVP ONCE PRN PRN Reason: Nausea/Vomiting Tramadol HCl (Ultram) 50 mg PO Q6 [facility] Last Admin: 04/08/18 11:10 Dose: 50 mg - Labs Labs: 04/08/18 06:00 04/07/18 05:30 PT 12.3 SECONDS (9.4-12.5) 04/05/18 13:04 INR 1.07 (0.93-1.08) 04/05/18 13:04 APTT 32.2 Seconds (25.1-36.5) 04/05/18 13:04 - Constitutional Appears: Well, No Acute Distress - Head Exam Head Exam: ATRAUMATIC, NORMOCEPHALIC - Eye Exam Eye Exam: Normal appearance - ENT Exam ENT Exam: Mucous Membranes Moist - Respiratory Exam Respiratory Exam: NORMAL BREATHING PATTERN - Cardiovascular Exam Cardiovascular Exam: RRR - GI/Abdominal Exam GI & Abdominal Exam: Soft. absent: Tenderness - Extremities Exam Additional comments: Left lateral thigh with dressing, clean/dry/intact - Neurological Exam Neurological Exam: Alert, Awake, Oriented x3 - Skin Skin Exam: Dry, Warm Assessment and Plan - Assessment and Plan (Free Text) Assessment: 87M s/p excision of Left lateral thigh mass and suprapubic sebaceous cyst Plan: - ok to DC from surgical standpoint - f/u with Dr. Rodriguez in 1 week - Ok to remove dressings tomorrow & shower - d/w Dr. Michael Toney, PGY-3
--- NOTE | 2018-04-08 15:39 | PN ---
DATE: 04/08/2018 HISTORY OF PRESENT ILLNESS: The patient is not complaining of any chest pain or shortness of breath. No headaches or dizziness. The patient had a biopsy done yesterday, results are pending. He has not been able to ambulate. The plan is to get him to subacute rehab or transitional care unit today. I did speak to the patient's daughter at the bedside to give an update on the patient's diagnosis and plan of care. He is being followed by Dr. Harkins and also by Dr. Hidalgo from Oncology and Orthopedics respectively. He is eating okay. PHYSICAL EXAMINATION: VITAL SIGNS: Temperature is 98, pulse of 80, blood pressure 120/77, respiration is 20. GENERAL: The patient is lying in bed, flat, comfortable. HEENT: No oral lesion. Anicteric sclerae. Moist mucosa. NECK: No JVD, adenopathy, or thyromegaly. CARDIOVASCULAR: S1 and S2, regular. No murmurs, rubs, or gallops. LUNGS: Clear to auscultation bilaterally. No wheeze, rales, or rhonchi. ABDOMEN: Bowel sounds are positive, soft, nontender and nondistended. EXTREMITIES: no cyanosis, clubbing or edema. ASSESSMENT AND PLAN: 1. Left leg mass, status post excision. 2. Hypertension. 3. History of melanoma. 4. Basal cell carcinoma. 5. Gastroesophageal reflux disease. 6. Degenerative joint disease/osteoarthritis. 7. Former smoker. 8. Benign prostatic hyperplasia. 9. Hemorrhagic cyst of the right kidney, 16 x 23 x 30 mm. 10. Anemia, chronic. PLAN: The patient is currently comfortable. We will wait for the results of the pathology of the leg mass. It is possibly a sebaceous cyst, fairly large though and the patient is on Proscar for BPH. He is on tramadol. The patient is on lisinopril for hypertension. The patient is on a heart-healthy diet. The patient was not seen by physical therapy because the patient is off the floor getting surgery. I will see if the patient is acceptable to TCU. If the patient gets accepted, we will discharge to TCU and continue to follow there. CONDITION: Stable. ACTIVITIES: Increase as tolerated. Trung Harden MD [facility] # [id number]
--- NOTE | 2018-04-08 16:28 | CP.PCM.CON ---
History of Present Illness - History of Present Illness History of Present Illness: 87 year old male with PMH of basal cell carcinoma and melanoma, GERD, HTN, history of cardiac arrhythmia, BPH, S/P TURP, anxiety, came in to [facility] complaining of a left thigh mass which has been there for about 2 years now but the patient noted that there was foul smell coming from the lesion and there was some blood coming out of it as well. It started as a flat lesion then it became exophytic. He would clean it with soap and water and covers it with dressings himself. He denies animal contact but he bikes a lot. He denies fever or chills, no nausea or vomiting, no chest pain, no SOB, no headache or dizziness, no diarrhea, no dysuria. The patient underwent excisional biopsy yesterday. Wound swab revealed Pseudomonas but as per surgery the whole lesion came off clean and it did not invade the fascial plane. Infectious Diseases consult is requested to further evaluate and manage. Review of Systems - Review of Systems All systems: reviewed and no additional remarkable complaints except (as per HPI ) Past Patient History - Tetanus Immunizations Tetanus Immunization: Unknown - Past Medical History & Family History Past Medical History?: Yes - Past Social History Smoking Status: Former Smoker - CARDIAC Hx Cardia Arrhythmia: Yes Hx Hypertension: Yes - MUSCULOSKELETAL/RHEUMATOLOGICAL Hx Falls: No - GASTROINTESTINAL Hx Gastroesophageal Reflux: Yes - PSYCHIATRIC Hx Anxiety: Yes Hx Substance Use: No - SURGICAL HISTORY Other/Comment: TURB Meds Allergies/Adverse Reactions: Allergies Allergy/AdvReac Type Severity Reaction Status Date / Time ciprofloxacin [From Cipro] Allergy URTICARIA Verified 04/05/18 12:07 - Medications Medications: Current Medications Acetaminophen (Tylenol 325mg Tab) 650 mg PO Q6H PRN PRN Reason: Fever >100.4 F Last Admin: 04/06/18 00:26 Dose: 650 mg Alprazolam (Xanax) 0.5 mg PO Q6 PRN; Protocol PRN Reason: Anxiety Last Admin: 04/06/18 21:52 Dose: 0.5 mg Digoxin (Lanoxin) 0.25 mg PO DAILY [facility] Last Admin: 04/06/18 09:44 Dose: 0.25 mg Finasteride (Proscar) 5 mg PO DAILY [facility] Last Admin: 04/06/18 09:45 Dose: 5 mg Ceftriaxone Sodium (Rocephin 1 Gram Ivpb) 1 gm in 100 mls @ 100 mls/hr IVPB DAILY [facility] PRN Reason: Protocol Last Admin: 04/06/18 09:45 Dose: 100 mls/hr Lisinopril (Zestril) 5 mg PO DAILY [facility] Last Admin: 04/06/18 09:44 Dose: 5 mg Oxycodone/Acetaminophen (Percocet 5/325 Mg Tab) 1 tab PO Q4H PRN PRN Reason: Pain, severe (8-10) Stop: 04/09/18 09:23 Last Admin: 04/06/18 21:51 Dose: 1 tab Pantoprazole Sodium (Protonix Inj) 40 mg IVP DAILY [facility] Last Admin: 04/06/18 09:44 Dose: 40 mg Tramadol HCl (Ultram) 50 mg PO Q4 PRN PRN Reason: Pain, moderate (4-7) Physical Exam - Constitutional Appears: Chronically Ill - Head Exam Head Exam: NORMAL INSPECTION - Neck Exam Neck exam: Negative for: Meningismus - Respiratory Exam Respiratory Exam: Decreased Breath Sounds - Cardiovascular Exam Cardiovascular Exam: +S1, +S2 - GI/Abdominal Exam GI & Abdominal Exam: Soft. absent: Tenderness - Extremities Exam Additional comments: left thigh with dressings in place Results - Vital Signs Recent Vital Signs: Last Vital Signs Temp 97.8 F 04/06/18 18:00 Pulse 75 04/06/18 18:00 Resp 18 04/06/18 18:00 BP 133/75 04/06/18 18:00 Pulse Ox 96 04/06/18 18:00 - Labs Result Diagrams: 04/08/18 06:00 04/07/18 05:30 Labs: Laboratory Results - last 24 hr 04/06/18 04/06/18 04/06/18 05:30 05:30 05:30 WBC 11.3 H RBC 3.64 Hgb 9.3 L Hct 28.9 L MCV 79.4 L MCH 25.5 MCHC 32.2 RDW 15.4 H Plt Count 494 H MPV 9.7 Gran % 72.5 H Lymph % (Auto) 14.1 L Coffey % (Auto) 10.9 H Eos % (Auto) 2.1 Baso % (Auto) 0.4 Gran # 8.15 H Lymph # (Auto) 1.6 Coffey # (Auto) 1.2 H Eos # (Auto) 0.2 Baso # (Auto) 0.04 Retic Count 1.11 Sodium 142 Potassium 4.5 Chloride 106 Carbon Dioxide 26 Anion Gap 14 BUN 24 H Creatinine 0.7 L Est GFR ( Amer) > 60 Est GFR (Non-Af Amer) > 60 Random Glucose 100 Calcium 8.8 Iron TIBC % Saturation Ferritin 270.0 Total Bilirubin 0.7 AST 37 ALT 35 Alkaline Phosphatase 82 Total Protein 6.5 Albumin 3.3 Globulin 3.2 Albumin/Globulin Ratio 1.0 L Vitamin B12 274 25-OH Vitamin D Total Folate 8.5 Free T4 0.98 TSH 3rd Generation 1.75 04/06/18 05:30 WBC RBC Hgb Hct MCV MCH MCHC RDW Plt Count MPV Gran % Lymph % (Auto) Coffey % (Auto) Eos % (Auto) Baso % (Auto) Gran # Lymph # (Auto) Coffey # (Auto) Eos # (Auto) Baso # (Auto) Retic Count Sodium Potassium Chloride Carbon Dioxide Anion Gap BUN Creatinine Est GFR ( Amer) Est GFR (Non-Af Amer) Random Glucose Calcium Iron 46 TIBC 246 L % Saturation 19 L Ferritin Total Bilirubin AST ALT Alkaline Phosphatase Total Protein Albumin Globulin Albumin/Globulin Ratio Vitamin B12 25-OH Vitamin D Total 31.1 Folate Free T4 TSH 3rd Generation Assessment & Plan - Assessment and Plan (Free Text) Plan: Assessment Left thigh mass S/P excisional biopsy - wound swab grew Pseudomonas but lesion came off clean as per Surgery and the wound base is clean basal cell carcinoma and melanoma GERD HTN history of cardiac arrhythmia BPH S/P TURP anxiety Plan Started the patient on Cefepime prior to Surgery but since the wound base is clean and the whole lesion is removed and there is no involvement of fascial plane, will keep off antibiotics with local wound care - discussed with Surgery and they agree discussed with patient and family
[2018-04-08 18:55] VITALS: RESP 20
--- NOTE | 2018-04-09 07:26 | OP ---
PROCEDURE DATE: 04/07/2018 PREOPERATIVE DIAGNOSES: 1. Left lateral thigh mass, measuring 10 x 12 cm. 2. Left groin sebaceous cyst, measuring 4 x 2 cm. POSTOPERATIVE DIAGNOSES: 1. Left lateral thigh mass, measuring 10 x 12 cm. 2. Left groin sebaceous cyst, measuring 4 x 2 cm. PROCEDURES PERFORMED: 1. Wide and deep excision of the left lateral thigh mass. 2. Advancement flap closure of a 20 x 10 cm wound on the left lateral thigh. 3. Excision of the sebaceous cyst with layered closure. SURGEON: Dr. Rodriguez. [employer]: Dr. Villa. ANESTHESIA ADMINISTERED BY: Dr. Yung. TYPE OF ANESTHESIA: General endotracheal anesthesia. ESTIMATED BLOOD LOSS: Minimal. SPECIMEN: 1. Left thigh mass with adjacent tissues. 2. Sebaceous cyst with overlying skin from the left groin. FINDINGS: The patient is an 87-year-old male with history of bleeding mass from the left lateral thigh. The patient apparently had this for several years; however, it was recently increasing in size as well as started to bleed frequently and patient finally decided to come in to the hospital. Patient was examined, was noted to have a large fungating mass, possibly representing basal cell carcinoma versus another neoplasm, and decision was made to proceed with wide excision of this mass. Due to the size of this mass, which was about 12 x 10 cm on the surface, and the need for additional skin margins, decision was made to proceed with excision of this mass followed by the advancement flap closure of the wound. Patient also with a sebacious cyst located in the left groin, which was also scheduled for excision. DESCRIPTION OF PROCEDURE: The patient was brought to the operating room, was placed on the operating table in supine position. Patient was connected to the EKG, blood pressure, and Holter monitors and was then prepped and draped in the usual sterile fashion after a booster was placed under the left in order to elevate lateral left hip. Firsthand, a time-out procedure was completed and everybody in the room agreed of the patient's identity, diagnoses and procedure to be performed, the course of the procedure as well as operating room staff. Using lidocaine mixed with Marcaine, the area of the large lateral thigh mass was infiltrated along the previously marked margins, which increased about 2 cm of normal skin on all sides of the specimen. Once this was done, the incision was made using #15 blade in an S-shaped fashion in order to create adequate skin flaps for closure of this wound. Once the entire mass was excised carefully with the underlying fat down to the fascia, it appeared that the fascia was not directly in contact with the mass. I then proceeded to creating the large flaps, both medially and laterally for about 4 inches on each sides. Once this was done, we were able to easily reapproximate the skin and the wound was now carefully closed using 3-0 Vicryl for deep dermal stitches and surgical tanna as well as 2-0 nylon stitches for closure. The wounds prior to the flap creation was measuring 20 x 10 cm. Once this was completed, a sterile dressing was applied to this wound. We then proceeded with excision of the sebaceous cyst measuring about 2 x 4 cm, located in the pubic area adjacent to the left inguinal crease. This was also infiltrated with lidocaine mixed with Marcaine, and then an elliptical incision was made in order to excise the entire specimen. The wound was then copiously irrigated, and all the bleeding points were cauterized, and the wound was closed in layers using 3-0 Vicryl for the deep layer and 4-0 Monocryl in a subcuticular fashion for closure of the wound. A Dermabond dressing was applied to this wound. The patient tolerated the procedure well and there were no complications. The patient was awakened and transferred to recovery room for further observation. Anupam Rodriguez MD
--- NOTE | 2018-04-09 08:06 | CP.PCM.PN ---
Subjective - Date & Time of Evaluation Date of Evaluation: 04/09/18 Time of Evaluation: 07:02 - Subjective Subjective: Roberto Broderick PGY1 Surgical Progress Note for Dr. Rodriguez Patient was seen and examined. He has no complaints and no overnight events. denies chest pain, leg pain. states he still has weakness in his legs. He is undergoing PT rehab with bed mobility, sitting and standing balance with transfer to chair. Objective - Vital Signs/Intake and Output Vital Signs (last 24 hours): Temp Pulse Resp BP Pulse Ox 97.4 F L 70 20 123/73 94 L 04/08/18 18:00 04/09/18 06:00 04/08/18 18:00 04/08/18 18:00 04/08/18 18:00 Intake and Output: 04/09/18 04/09/18 06:59 18:59 Intake Total 480 0 Output Total 100 200 Balance 380 -200 - Medications Medications: Current Medications Acetaminophen (Tylenol 325mg Tab) 650 mg PO Q6H PRN PRN Reason: Pain, moderate (4-7) Alprazolam (Xanax) 0.5 mg PO Q6 PRN; Protocol PRN Reason: Anxiety Last Admin: 04/08/18 20:10 Dose: 0.5 mg Digoxin (Lanoxin) 0.25 mg PO DAILY [facility] Last Admin: 04/08/18 09:51 Dose: 0.25 mg Finasteride (Proscar) 5 mg PO DAILY [facility] Last Admin: 04/08/18 09:52 Dose: 5 mg Lisinopril (Zestril) 5 mg PO DAILY [facility] Last Admin: 04/08/18 09:52 Dose: 5 mg Ondansetron HCl (Zofran Inj) 4 mg IVP ONCE PRN PRN Reason: Nausea/Vomiting Tramadol HCl (Ultram) 50 mg PO Q6 [facility] Last Admin: 04/09/18 05:36 Dose: Not Given - Labs Labs: 04/08/18 06:00 04/07/18 05:30 PT 12.3 SECONDS (9.4-12.5) 04/05/18 13:04 INR 1.07 (0.93-1.08) 04/05/18 13:04 APTT 32.2 Seconds (25.1-36.5) 04/05/18 13:04 - Additional Findings Additional findings: - Constitutional Appears: Well, No Acute Distress - Head Exam Head Exam: ATRAUMATIC, NORMOCEPHALIC - Eye Exam Eye Exam: Normal appearance - ENT Exam ENT Exam: Mucous Membranes Moist - Respiratory Exam Respiratory Exam: NORMAL BREATHING PATTERN - Cardiovascular Exam Cardiovascular Exam: RRR - GI/Abdominal Exam GI & Abdominal Exam: Soft. absent: Tenderness - Extremities Exam Additional comments: Left lateral thigh with dressing, clean/dry/intact - Neurological Exam Neurological Exam: Alert, Awake, Oriented x3 - Skin Skin Exam: Dry, Warm Assessment and Plan - Assessment and Plan (Free Text) Assessment: 87yo M with a PMH of basal cell carcinoma and melanoma, GERD, HTN, history of cardiac arrhythmia, BPH, S/P TURP, anxiety s/p excision of Left lateral thigh mass and suprapubic sebaceous cyst Plan: - pseudomonas growing from tissue culture from left thigh; discussed w/ ID and doesn't need abx due to complete removal of lesion, w/ clean base and no fascial plane involvement - ok to DC from surgical standpoint, pending DEEPTI vs TCU placement - f/u with Dr. Rodriguez in 1 week - Ok to remove dressings & shower Case was reviewed and discussed with Dr. Rodriguez
--- NOTE | 2018-04-09 09:16 | PN ---
DATE: 04/09/2018 HISTORY OF PRESENT ILLNESS: Ms. Murray has left thigh mass, which was resected. He has been doing well postop. Pathology is pending. He has a history of melanoma in the past. Chronic anemia. Hemoglobin and hematocrit stable now. Blood pressure controlled on current medications. REVIEW OF SYSTEMS: As per HPI. Rest of 12-point review of systems reviewed negative. PHYSICAL EXAMINATION: GENERAL: Comfortable in bed, in no acute distress. VITAL SIGNS: Temperature 98.7, heart rate 80 per minute, blood pressure 120/70, respiratory rate 18 per minute. HEENT: Pallor positive. NECK: No lymphadenopathy. CHEST: Air entry present and equal bilateral. No added sound. CARDIOVASCULAR: S1, S2 normal. No murmur. No gallop. ABDOMEN: Soft, nontender. No hepatosplenomegaly. EXTREMITIES: No edema. LABORATORY DATA: White count 12,000, hemoglobin 8.8, hematocrit 27.8, platelet 444. Sodium 140, potassium 4.7, BUN 20, creatinine 0.7. MEDICATIONS: Reviewed. ASSESSMENT: Left thigh mass, surgically removed. Pathology pending. Blood count stable. Recovery well from surgery. Blood pressure controlled with lisinopril. He was seen and evaluated by Physical Therapy. Plan is to transfer to Transitional Care Unit. Continue Proscar for benign prostatic hypertrophy. Lindy Gabriela, MD
[2018-04-09] MEDS: Digoxin 250 mcg (0.25 mg) Tab PO SCH (09:23)
[2018-04-09 09:26] VITALS: BP 127/73; PULSE 67; PULSE 71
[2018-04-09 10:03] VITALS: TEMP 98.2; O2SAT 92
[2018-04-09 11:16] LABS: BASO # 0.03 K/mm3 (0.0-2.0); BASO % 0.3 % (0.0-3.0); EOS # 0.1 (0.0-0.7); EOS % 1.2 % (1.5-5.0); GRAN # 8.71 (1.4-6.5); GRAN % 75.7 % (50.0-68.0); HEMOGLOBIN 9.2 g/dL (14.0-18.0); LYMPH # 1.5 (1.2-3.4); LYMPH % 13.1 % (22.0-35.0); MEAN CELL VOLUME 81.1 fl (80.0-105.0); MEAN CORPUSCULAR HEMOGLOBIN 25.6 pg (25.0-35.0); MEAN CORPUSCULAR HGB CONC 31.5 g/dl (31.0-37.0); MEAN PLATELET VOLUME 9.4 fl (7.0-11.0); MONO # 1.1 (0.1-0.6); MONO % 9.7 % (1.0-6.0); RBC 3.6 10^6/uL (3.5-6.1); WHITE BLOOD COUNT 11.5 10^3/ul (4.5-11.0)
[2018-04-09 11:31] LABS: ALBUMIN 3.3 g/dL (3.0-4.8); ALT/SGPT 72 U/L (7-56); AST/SGOT 75 U/L (17-59); BLOOD UREA NITROGEN 18 mg/dL (7-21); CALCIUM 9.3 mg/dL (8.4-10.5); GFR AFRICAN-AMERICAN > 60; GFR NON-AFRICAN AMERICAN > 60
--- NOTE | 2018-04-09 16:47 | CP.PCM.PN ---
Subjective - Date & Time of Evaluation Date of Evaluation: 04/09/18 Time of Evaluation: 10:10 - Subjective Subjective: Resting comfortably in bed, no fevers, not in distress. Objective - Vital Signs/Intake and Output Vital Signs (last 24 hours): Temp Pulse Resp BP Pulse Ox 97.4 F L 70 20 123/73 94 L 04/08/18 18:00 04/09/18 06:00 04/08/18 18:00 04/08/18 18:00 04/08/18 18:00 Intake and Output: 04/09/18 04/09/18 06:59 18:59 Intake Total 480 Output Total 100 Balance 380 - Medications Medications: Current Medications Acetaminophen (Tylenol 325mg Tab) 650 mg PO Q6H PRN PRN Reason: Pain, moderate (4-7) Alprazolam (Xanax) 0.5 mg PO Q6 PRN; Protocol PRN Reason: Anxiety Last Admin: 04/08/18 20:10 Dose: 0.5 mg Digoxin (Lanoxin) 0.25 mg PO DAILY [facility] Last Admin: 04/08/18 09:51 Dose: 0.25 mg Finasteride (Proscar) 5 mg PO DAILY [facility] Last Admin: 04/08/18 09:52 Dose: 5 mg Lisinopril (Zestril) 5 mg PO DAILY [facility] Last Admin: 04/08/18 09:52 Dose: 5 mg Ondansetron HCl (Zofran Inj) 4 mg IVP ONCE PRN PRN Reason: Nausea/Vomiting Tramadol HCl (Ultram) 50 mg PO Q6 [facility] Last Admin: 04/09/18 05:36 Dose: Not Given - Labs Labs: 04/08/18 06:00 04/07/18 05:30 PT 12.3 SECONDS (9.4-12.5) 04/05/18 13:04 INR 1.07 (0.93-1.08) 04/05/18 13:04 APTT 32.2 Seconds (25.1-36.5) 04/05/18 13:04 - Constitutional Appears: No Acute Distress - Extremities Exam Additional comments: left leg with dressings in place Assessment and Plan - Assessment and Plan (Free Text) Plan: Assessment Left thigh mass S/P excisional biopsy - wound swab grew Pseudomonas but lesion came off clean as per Surgery and the wound base is clean basal cell carcinoma and melanoma GERD HTN history of cardiac arrhythmia BPH S/P TURP anxiety Plan was started the patient on Cefepime prior to Surgery but since the wound base is clean and the whole lesion is removed and there is no involvement of fascial plane, will continue to keep off antibiotics with local wound care - discussed with Surgery and they agree discussed with patient and family as well
== END 2018-04-09 15:47 | disposition home or self-care (01) | DRG 577 ==
LOC: ED 11:56 → ERH 15:25 → 3RSO 17:00
PROVIDERS: ADMIT Internal Medicine Nephrology; ATTEND Internal Medicine Nephrology
PROC: 30233N1 Transfusion of Nonautologous Red Blood Cells into Peripheral Vein, Percutaneous Approach (ICD-10-PCS; 2018-04-05)
PROC: 3E0U33Z Introduction of Anti-inflammatory into Joints, Percutaneous Approach (ICD-10-PCS; 2018-04-06)
PROC: 3E0U3BZ Introduction of Anesthetic Agent into Joints, Percutaneous Approach (ICD-10-PCS; 2018-04-06)
PROC: 0HBAXZZ Excision of Inguinal Skin, External Approach (ICD-10-PCS; 2018-04-07)
PROC: 0HXJXZZ Transfer Left Upper Leg Skin, External Approach (ICD-10-PCS; principal; 2018-04-07 10:00)
PROC: 0HBJXZZ Excision of Left Upper Leg Skin, External Approach (ICD-10-PCS; 2018-04-07 10:00)
DX: C44.719 Basal cell carcinoma of skin of left lower limb, including hip (principal); D64.9 Anemia, unspecified; I10 Essential (primary) hypertension; M75.52 Bursitis of left shoulder; Z68.1 Body mass index [BMI] 19.9 or less, adult; N40.0 Benign prostatic hyperplasia without lower urinary tract symptoms; F41.9 Anxiety disorder, unspecified; K29.70 Gastritis, unspecified, without bleeding; L72.3 Sebaceous cyst; K21.9 Gastro-esophageal reflux disease without esophagitis; K40.90 Unilateral inguinal hernia, without obstruction or gangrene, not specified as recurrent; K59.09 Other constipation; N28.1 Cyst of kidney, acquired; K64.9 Unspecified hemorrhoids; R63.4 Abnormal weight loss; Z85.820 Personal history of malignant melanoma of skin; Z87.891 Personal history of nicotine dependence; Z90.79 Acquired absence of other genital organ(s)